=== PATIENT | female | born 1955 | race Caucasian/White ===

== ENCOUNTER 2025-01-22 05:49 | Day surgery (SDC) | payer MEDICARE, OTHER, SELFPAY ==
--- NOTE | 2025-01-07 13:18 | CM ---
Demographics:
Living situation: home with
Support Person Post Operatively:
History of
VN: NO
SNF: No
Outpatient: [facility]
Has patient purchased required equipment: yes
PCP: yes
Pharmacy: [facility]
Post Operative Discharge Plan: Home with [facility] and then transition to outpatient PT.
--- NOTE | 2025-01-08 09:33 | VNURNOTE ---
Patient is scheduled for an elective TKA on 01/22 - she is a same day patient with Dr Bond. Spoke with patient prior to surgery. Introduced role of [facility] Liaison.
She has a rolling walker.
PCP is Dr Bella Hebert
Discussed [facility] joint protocol and post surgical plans.
Reviewed that she will have VN services initially and will then start outpatient PT.
Patient selects [facility] for home care needs and will go to [facility] for outpatient PT. Scheduled for 01/27 .
Patient is in agreement with plan and states that her spouse will be home with her. Advised to bring RW with her day of surgery. [facility] contact number provided. Referral placed in [facility].
Plan: [facility] per [facility] joint protocol in 01/22 then outpt PT on 01/27
[2025-01-08 11:29] LABS: Hematocrit 36.7 % (37.0-47.0); Hemoglobin 11.7 g/dL (12.0-16.0); Mean Corp Hgb Conc. 31.9 g/dL (33.0-37.0); Mean Corpuscular Volume 85.0 fL (81.0-99.0); Platelet Count 287 10^3/uL (130-400); Red Cell Dist. Width 14.6 % (11.5-14.5)
[2025-01-08 12:15] LABS: ALT (SGPT) 19 U/L (0-35); AST (SGOT) 21 U/L (14-36); Albumin 4.2 g/dl (3.5-5.0); Alkaline Phosphatase 55 U/L (38-126); Blood Urea Nitrogen 15 mg/dl (7-17); Calcium 9.3 mg/dl (8.4-10.2); Carbon Dioxide 26 mmol/L (22-30); Chloride 108 mmol/L (98-107); Glucose 83 mg/dl (70-99); Potassium 4.6 mmol/L (3.5-5.1); Sodium 139 mmol/L (135-145); Total Protein 6.7 g/dl (6.3-8.2); eGFR > 60.00
[2025-01-08 12:26] LABS: Glycohemoglobin (HgbA1c) 6.1 % (4.0-5.6)
[2025-01-22] VITALS (21 sets, daily range): BP systolic 100–145; BP diastolic 59–80; PULSE 71; O2SAT 97
[2025-01-22] MEDS: TYLENOL 650 MG PO ×4 (06:22→23:49)
[2025-01-22] MEDS: CELEBREX 200 MG PO (06:22)
[2025-01-22] MEDS: BACTROBAN NASAL 1 GRAM NASAL (06:24)
[2025-01-22] MEDS: NORMOSOL-R/PLASMALYTE-A 1000 IV (06:48)
[2025-01-22] MEDS: ZOFRAN 4 MG IV (12:00)
[2025-01-22] MEDS: ANCEF 5 IV ×2 (12:14→20:11)
[2025-01-22] MEDS: DECADRON 2 MG IV (14:28)
[2025-01-22] MEDS: TORADOL 15 MG IV (16:01)
--- NOTE | 2025-01-22 16:41 | PTCARENOTE ---
Attempted PT assessment. Patient took about 10 steps and needed to sit down. Blood pressure stable 145/72. Patient expressed that she would like to be admitted and does not feel comfortable going home. Dr. Bond and Lianna Lu notified.
--- NOTE | 2025-01-22 18:06 | PTCARENOTE ---
Patient admitted to 2S report given to Lu LAMAR
--- NOTE | 2025-01-22 18:21 | OR.RPT ---
Addendum entered and electronically signed by Alvaro Bond MD 01/22/25 18:27:
Op note entered in error. See subsequent note
Original Note:
Operative Report
Operative Report
Orthopaedic Surgery Operative Note
DATE OF OPERATION: 01/22/2025
PREOPERATIVE DIAGNOSES: Osteoarthritis, left hip
POSTOPERATIVE DIAGNOSES: Same
OPERATION PERFORMED: Left total hip arthroplasty.
SURGEON: Alvaro Bond MD
GENERAL ASSIGNMENT REPORTER: Parish Kendall PA-C who helped with patient and limb positioning and retraction
ANESTHESIA: Spinal
COMPLICATIONS: None.
ESTIMATED BLOOD LOSS: 75 mL.
DRAINS: None
SPECIMEN: None
FINDINGS: Advanced articular cartilage wear on the femoral head and acetabulum.
IMPLANTS:
Biomet G7 Acetabular Shell, cluster hole, size 52
Biomet G7 Highly Crosslinked PE Liner, neutral
Cecil M/L Taper femoral stem, size 9 with standard neck length and standard offset
Biolox Ceramic Head, size 36mm -3.5mm
INDICATIONS: The patient presented to my office with debilitating left hip pain due to osteoarthritis. We reviewed the natural history of this problem, as well as the risks, benefits, and alternatives of various treatment options. The patient
exhausted all nonoperative treatment options and wished to proceed with hip replacement surgery. The patient understood the risks which included, but were not limited to, bleeding, infection, failure to relieve pain, more pain than preop, damage to
blood vessels and nerves, need for reoperation, mechanical failure of the implants, wound healing problems, stiffness, instability, blood clot, pulmonary embolism, myocardial infarction, pneumonia, arrhythmia, CVA, and . The patient accepted
these risks and wished to proceed. All questions were answered, and informed consent was obtained.
PROCEDURE IN DETAIL: The patient was identified in the preoperative holding area. The left hip was identified as the operative site. The patient was taken in the operating room and transferred to the operative table. Spinal anesthesia was performed.
IV antibiotics and tranexamic acid were administered. The patient was placed in the lateral position with Stulberg hip positioners. Axillary roll was placed. The down leg was well padded. All bony prominences were well padded. The operative limb was
prepped and draped in the usual sterile fashion.
Time out was performed. A posterolateral approach to the hip was used. The skin incision was centered over the greater trochanter. This was taken down sharply through subcutaneous tissues. Meticulous hemostasis was achieved throughout the case with
electrocautery. We split the fascia hiwot in line with skin incision. I split the gluteus blue bluntly. We cauterized all crossing vessels as we split it. I palpated the sciatic nerve and made sure it was well posterior in the operative field. It
was protected throughout the case.
I performed a partial bursectomy to identify the short external rotators. The gluteus medius and minimus were identified and retracted anteriorly. I incised the piriformis tendon and conjoint tendon at their insertions. These were tagged for later
repair. I then performed a trapezoidal capsulotomy. The edges were tagged for later repair. I referenced the cut edge of the capsular flap to 2 fixed points on the greater trochanter for assistance with recreation of limb length and offset. I then
dislocated the hip posteriorly. I performed a femoral neck osteotomy approximately 5 mm above the lesser trochanter, as per preoperative templating. The femoral head measured 45 mm in outer diameter. The distance between the neck cut and center of
the femoral head was measured to be 35mm. I placed a curve hohmann retractor over the anterior lip of the acetabulum between the labrum and the anterior hip capsule. A second retractor was placed inferiorly just distal to the transverse acetabular
ligament. Circumferential view of the acetabulum was achieved. I incised the labrum and pulvinar with electrocautery. I started with a 47 mm reamer and reamed down to the medial wall. I then sequentially reamed up to a 51mm reamer. This gave a nice
bed of bleeding bone with excellent column support anteriorly and posteriorly. I impacted the acetabular shell in approximately 40 degrees of abduction and 20 degrees of anteversion. I matched the anteversion of the transverse acetabular ligament. I
also made sure that the anterior rim of the socket was not proud of the anterior wall to minimize the chance of iliopsoas tendinitis. I confirmed the cup was well-seated. I then impacted a neutral liner and confirmed it was well seated with the
locking mechanism.
On the femoral side, I use a box osteotome to open the starting point. I found the canal with a Charnley awl and a lateralizing reamer. I then used the Cecil M/L taper broaches sequentially to prepare the femoral canal. The size 9 came to a stop at
the desired level and had excellent axial and rotational stability. We trialed with a trial ball head. The hip was taken through a complete range of motion. It was noted to be stable in extension without impingement. It was stable in the position of
sleep and in flexion with internal rotation. The limb length and offset were checked compared to the capsular flap and was appropriate. The measured length between the lesser trochanter and center of the femoral head was 37.5mm.
I removed the trials. I impacted the femoral implant to match the [place] version. It had excellent axial and rotational stability. Trial ball head was placed, and I reduced the hip and took the hip through a complete range of motion. There was no
impingement in external rotation and extension. Position of sleep was stable. At 90 degrees of flexion and slight adduction, the hip could be internally rotated to 90 degrees with no subluxation. I palpated the sciatic nerve, which was tension free
and unharmed. Based on our capsular flap measurement, we had restored the offset and leg length. The trial ball head was removed, and the final ball head was impacted onto a clean and dry Gonzalez taper. The hip was reduced.
A dilute betadine soak was performed for approximately 3 minutes, and then the hip was copiously irrigated. I repaired the capsule, piriformis, and conjoint tendon with #2 Ethibond to drill holes in the greater trochanter. Local anesthetic was
injected. The fascia hiwot was closed with #1 PDS in running fashion. The subcutaneous tissues were closed with 2-0 PDS in running fashion. The skin was reapproximated with 3-0 Monocryl subcuticular suture. I placed a skin glue dressing followed by a
Mepilex Ag dressing. The patient awoke from anesthesia without difficulty. Sponge and instrument counts were correct x2 at the end of the case.
I was present and participated in the entire procedure. I checked leg length at the ankles after transfer on the bed which was equal. The patient was sent to the recovery room in stable condition.
Suresh Bond MD
--- NOTE | 2025-01-22 18:24 | OR.RPT ---
Operative Report
Operative Report
Orthopaedic Surgery Operative Note
DATE OF OPERATION: 01/22/2025
PREOPERATIVE DIAGNOSES: Osteoarthritis, right knee.
POSTOPERATIVE DIAGNOSES: Osteoarthritis, right knee.
OPERATION PERFORMED: Right total knee arthroplasty.
SURGEON: Alvaro Bond MD
ASSISTANTS: Parish Kendall PA-C who helped with patient and limb positioning and retraction
ANESTHESIA: Spinal
COMPLICATIONS: None.
ESTIMATED BLOOD LOSS: 20mL
DRAINS: None
TOURNIQUET TIME: 50 minutes.
IMPLANTS:
- Cecil Persona CR Femur, size 8
- Cecil Persona tibia base plate, size E
- Cecil Persona ultracongruent articular surface, 12 mm
- All-polyethylene patellar component, size 32
INDICATIONS: The patient presented to my office with debilitating right knee pain due to osteoarthritis. We reviewed the natural history of this problem, as well as the risks, benefits, and alternatives of various treatment options. The patient
exhausted all nonoperative treatment options and wished to proceed with knee replacement surgery. The patient understood the risks which included, but were not limited to, bleeding, infection, failure to relieve pain, more pain than preop, damage to
blood vessels and nerves, need for reoperation, mechanical failure of the implants, wound healing problems, stiffness, instability, blood clot, pulmonary embolism, myocardial infarction, pneumonia, arrhythmia, CVA, and . The patient accepted
these risks and wished to proceed. All questions were answered, and informed consent was obtained.
PROCEDURE IN DETAIL: The patient was identified in the preoperative holding area. The right knee was identified as the operative site. The patient was taken in the operating room and placed in a supine position on the operating table. Spinal
anesthesia was performed. IV antibiotics and tranexamic acid were administered. An SCD was placed on the left lower extremity. A well-padded tourniquet was placed on the proximal thigh. All bony prominences were well padded. The right lower
extremity was prepped and draped in the usual sterile fashion.
We performed a surgical time-out. An interarticular block was performed with local anesthetic with epinephrine. The limb was exsanguinated with an Esmarch bandage, then the tourniquet was inflated to 250 mmHg. A midline skin incision was made
followed by a medial parapatellar arthrotomy. A subperiosteal peel was performed on the medial tibia. I excised part of the infrapatellar fat pad to improve our visualization as well as tissue over anterior femur. The patella was everted and the
knee was flexed. I excised the remnants of the anterior and posterior cruciate ligaments as well as tibial and femoral osteophytes with rongeurs.
The knee was flexed, and the extramedullary tibial cutting guide was aligned. [place] was aligned at neutral, rotation was centered on the tibial tubercle, and coronal alignment was aligned with the mechanical axis of the tibia and center of the ankle
joint. The cut height was 10mm off the lateral tibia joint surface. The guide was secured into place. The MCL and LCL were protected. The tibia surface was cut. The cut surface was inspected after removal to ensure appropriate height and slope based
on the preoperative plan. The cut was checked with a drop juanita. It was centered nicely at the ankle.
A drill was used to open the femoral canal. The intramedullary distal femoral cutting guide was inserted into the femur. This was set at 5 degrees +0. This was secured into place with three pins. The cut level was checked with an magno wing. The
distal femur was cut through the cutting guide. The IM guide was reinserted to double check that the level of resection was flush and in appropriate alignment.
[place]�s line and the transepicondylar axis were marked on the femur. The femoral sizing guide was applied to the anterior femur. Pins were inserted, and the 4-in-1 cutting guide was applied and secured into place. The rotation was compared to
[place]�s line, the transepicondylar axis, and the neutral tibia cut and was found to be appropriate. The width was checked and found to be appropriate and lateralized on the femur. The anterior, posterior, and chamfur cuts were made. A lamina
case managers was used to open the flexion gap, and posterior osteophytes were removed with a curved osteotome. The remnant medial and lateral meniscus were also removed. I prophylactically cauterized the lateral geniculate arteries. A 10mm spacer block
was applied to the flexion gap and was noted to be balanced medially and laterally. The knee was extended, and the block showed symmetric to extension and flexion gaps.
The tibia was exposed and sized. Rotation was set in line with the tibial tubercle and congruent with the femur. The trial was secured into place with two pins. The trial femur was impacted into place, and a trial articular surface was placed. The
knee was taken through range of motion and noted to be stable throughout the arc of motion without gaping or excess tension. In extension, a measured resection of the patella was performed. The patella was sized, and lug holes were drilled. A trial
patella component was applied, and it was noted to track centrally throughout the arc of motion without need for further releases.
The trials were removed. The tibia keel was prepared with the punch and the drill. The bone surfaces were irrigated with sterile saline and dried. The cement was mixed in a vacuum mixer. Cement gun was used to apply cement to the tibial surface and
the undersurface of the tibial implant. Cement was pressurized into the tibial canal and tibia surface. The tibial component was impacted into place. Excess cement was removed. Cement was applied to the femoral surface and the femoral component. The
femoral component was impacted into place, and excess cement removed. A trial articular surface was inserted, and the knee was extended while the cement polymerized. The tourniquet was let down, and meticulous hemostasis was achieved. Dilute
betadine was poured into the wound and allowed to soak for 3 minutes. The knee was irrigated with copious normal saline.
Once the cement was polymerized, the trial articular surface was removed. Any excess cement was removed. The knee was trialed, and the final articular surface was selected and inserted into the tibial locking mechanism. The knee was reduced. A fresh
drape was applied to the surgical field.
The arthrotomy was closed with 0-PDS. Once closed, an interarticular block was performed with local anesthetic with epi. The deep dermal layer was closed with 2-0 PDS, and the subcuticular skin was closed with 3-0 monocryl. A skin glue dressing was
applied to the skin in full flexion. Once this was completely dry, a sterile waterproof dressing was applied.
The anesthesia team performed an adductor canal block in the OR. The patient awoke from anesthesia without any difficulties. The sponge and instrument counts were correct x2 at the end of the case.
Suresh Bond MD
[2025-01-22] MEDS: ASPIRIN 325 MG PO (20:10)
[2025-01-22] MEDS: SENOKOT 17.2 MG PO (20:11)
[2025-01-22] MEDS: SINGULAIR 10 MG PO (20:11)
[2025-01-22] MEDS: LIPITOR 10 MG PO (20:11)
[2025-01-22] MEDS: DECADRON 4 MG PO (20:11)
[2025-01-22] MEDS: COLACE 100 MG PO (20:11)
[2025-01-22] MEDS: LIDOCAINE 4% PATCH 2 PATCH TOPICAL (20:11)
[2025-01-22] MEDS: REMOVE LIDOCAINE PATCH 2 PATCH REMOVE (20:17)
[2025-01-22] MEDS: ROXICODONE 10 MG PO (22:13)
[2025-01-23] MEDS: TYLENOL 650 MG PO ×3 (03:01→11:41)
[2025-01-23] MEDS: ANCEF 5 IV (03:02)
[2025-01-23 03:03] VITALS: BP 108/63
[2025-01-23] MEDS: MAALOX 30 ML PO (04:27)
[2025-01-23] MEDS: ROXICODONE 10 MG PO (05:25)
[2025-01-23 07:40] VITALS: BP 118/67
[2025-01-23] MEDS: ASPIRIN 325 MG PO (08:04)
[2025-01-23] MEDS: LIDOCAINE 4% PATCH 2 PATCH TOPICAL (08:04)
[2025-01-23] MEDS: CELEBREX 200 MG PO (08:05)
[2025-01-23] MEDS: COLACE 100 MG PO (08:05)
[2025-01-23] MEDS: SENOKOT 17.2 MG PO (08:05)
[2025-01-23] MEDS: DECADRON 4 MG PO (08:05)
[2025-01-23] MEDS: PEPCID 40 MG PO (08:05)
--- NOTE | 2025-01-23 09:17 | CM ---
CM reviewed medical records. Plan for patient to see patient on 01/24 for PT/OT. CM to update patient.
PLAN: Home for VN.
--- NOTE | 2025-01-23 10:03 | W.PN.ORTHO ---
Today's Communication / Plan
-
Await PT and OT recs.
D/c later today if remaining clinically stable.
Assessment
.
Distal Motor Intact: Yes
Dressing:
Clean, dry and intact.
Assessment:
R knee OA s/p R TKA w/ Dr Bond 01/22/25
DVT prophylaxis - ASA, b/l venous foot pumps
Chronic, mild anemia - non-invasive hgb 12.2 POD 1
HLD
RBBB
Migraines
Cervical degenerative disc disease
Osteoporosis
Prediabetes, A1c 6.1
Obesity, BMI 30.0; status post gastric sleeve
Plan
.
Surgery / Date: R TKA w/ Dr Bond 01/22/25
DVT Prophylaxis: Aspirin
Activity:
Out of bed.
PT/OT
Discharge Plan: Home w/ VN (w/ transition to outpatient PT Monday )
Subjective
.
.:
Patient resting comfortably in bed.
Originally intended to go home SDS yesterday. Was admitted d/t grogginess, dizziness after GA yesterday. Spinal reportedly ineffective.
Feels well this morning overall. No further grogginess or dizziness.
Right knee pain overall well controlled w/ current pain meds.
Eager for potential d/c today.
Vital Signs and Labs
.
Vital Signs and Labs:
Lab Results
01/08/25 11:04
01/08/25 11:04
Temp Pulse Resp BP Pulse Ox
98.7 F 76 16 118/67 94
01/23/25 07:40 01/23/25 07:40 01/23/25 07:40 01/23/25 07:40 01/23/25 07:40
Non-invasive Hgb result: 12.2
Physical Exam
-
HEENT: No pallor, cyanosis, or jaundice. Throat clear.
NECK: Supple. No JVD.
RESPIRATORY: Lungs clear to auscultation.
CVS: S1, S2 normal. RRR.�
ABDOMEN: Soft, non-tender. No distension.
EXTREMITIES: Expected post-surgical R knee edema. Strength equal, no calf pain with palpation/dorsiflexion. Calves soft.
MAPLE [employer]ODU[employer]KER: AOx3. No focal deficits. front maker lockstitch grossly intact
--- NOTE | 2025-01-23 10:10 | W.DS.TRANS ---
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
-
Discharge Instructions:
Sleep Apnea Risk Low
Discharge Diagnosis/Procedures R knee OA s/p R TKA w/ Dr Bond 01/22/25
Diet Regular
Additional Diets Adequate hydration, minimize opioids, and wear
TEDs stockings to prevent low blood pressure/
dizziness.
Activity As tolerated,With Walker
Driving Restrictions Not until seen by your Dr
Bathing Restrictions OK to Shower
Other Services PT,VN
Wound Care Leave dressing on until seen by surgeon's office
for follow-up.
Instructions:
Stand-Alone Forms: [facility] Total Hip and Knee D/C
Changes to Home Medications: Yes
Discharge Medications:
DC Medications w/original date entered in [facility]
Calcium, Magnesium, Zinc D 1 dose PO DAILY 01/03/25
albuterol sulfate 90 mcg/actuation aerosol inhaler 1 puff inhalation Q6HPRN PRN shortness of breath 01/03/25
atorvastatin 10 mg tablet (Lipitor) 10 mg PO QPM 01/03/25
famotidine 40 mg tablet 40 mg PO BID 01/03/25
magnesium 1 dose PO DAILY 01/03/25
montelukast 10 mg tablet (Singulair) 10 mg PO HS 01/03/25
zoledronic acid 5 mg/100 mL in mannitol 5 %-water intravenous piggybck (Reclast) 5 mg IV .YEARLY 01/03/25
celecoxib 200 mg capsule (Celebrex) 200 mg PO DAILY #14 caps 01/08/25
dexamethasone 4 mg tablet 4 mg PO BID Anti-inflammatory #7 tabs 01/08/25
gabapentin 300 mg capsule 300 mg PO HS neuropathic pain/sleep #10 caps 01/08/25
ondansetron HCl 4 mg tablet 4 mg PO Q6H PRN nausea and vomiting #30 tabs 01/08/25
oxycodone 5 mg tablet 5 - 10 mg (1 - 2 x 5 mg) PO Q6H PRN moderate-severe pain #30 tabs 01/08/25
mupirocin 2 % topical ointment 1 applic intranasal BID #1 tube 01/13/25
acetaminophen 500 mg tablet (Tylenol Extra Strength) 1,000 mg (2 x 500 mg) PO Q6H #60 tabs 01/22/25
aspirin 325 mg tablet 325 mg PO DAILY #30 tabs 01/22/25
docusate sodium 100 mg capsule (Colace) 100 mg PO BID #30 caps 01/22/25
fluticasone 250 mcg-salmeterol 50 mcg/dose blistr powdr for inhalation (Advair Diskus) 1 inh inhalation DAILYPRN PRN shortness of breath #0 ea 01/22/25
magnesium hydroxide 400 mg/5 mL oral suspension (Milk of Magnesia) 30 ml PO HS PRN constipation #3,780 mL 01/22/25
sennosides 8.6 mg tablet (senna) 17.2 mg (2 x 8.6 mg) PO BID #30 tabs 01/22/25
lidocaine 4 % topical patch 2 patch topical DAILY #30 ea 01/23/25
Home Medication Changes
celecoxib 200 mg capsule (Celebrex) 200 mg PO DAILY #14 caps 01/08/25
dexamethasone 4 mg tablet 4 mg PO BID Anti-inflammatory #7 tabs 01/08/25
gabapentin 300 mg capsule 300 mg PO HS neuropathic pain/sleep #10 caps 01/08/25
ondansetron HCl 4 mg tablet 4 mg PO Q6H PRN nausea and vomiting #30 tabs 01/08/25
oxycodone 5 mg tablet 5 - 10 mg (1 - 2 x 5 mg) PO Q6H PRN moderate-severe pain #30 tabs 01/08/25
mupirocin 2 % topical ointment 1 applic intranasal BID #1 tube 01/13/25
acetaminophen 500 mg tablet (Tylenol Extra Strength) 1,000 mg (2 x 500 mg) PO Q6H #60 tabs 01/22/25
aspirin 325 mg tablet 325 mg PO DAILY #30 tabs 01/22/25
docusate sodium 100 mg capsule (Colace) 100 mg PO BID #30 caps 01/22/25
magnesium hydroxide 400 mg/5 mL oral suspension (Milk of Magnesia) 30 ml PO HS PRN constipation #3,780 mL 01/22/25
sennosides 8.6 mg tablet (senna) 17.2 mg (2 x 8.6 mg) PO BID #30 tabs 01/22/25
lidocaine 4 % topical patch 2 patch topical DAILY #30 ea 01/23/25
Pending Results: No
[2025-01-23] MEDS: ROXICODONE 5 MG PO (10:30)
[2025-01-23 11:42] VITALS: BP 124/69; PULSE 66; O2SAT 97
== END 2025-01-23 11:53 | disposition home health service (06) ==
LOC: SDS 05:49
PROVIDERS: ATTENDING PHYSICIAN Orthopaedic Surgery; FAMILY PHYSICIAN Family Medicine; OTHER PHYSICIAN Physician Assistant Medical
DX: M17.11 Unilateral primary osteoarthritis, right knee (principal); M16.12 Unilateral primary osteoarthritis, left hip
CPT/HCPCS: 27130; 27447; 36415; 73560; 80053; 83036; 85027; 86850; 86900; 86901; 87070; 93005; 97110; 97116; 97162; 97166; C1713; C1776